=== PATIENT | male | born 1985 | race Caucasian/White ===

== ENCOUNTER 2022-07-25 13:54 | Emergency (ER) | payer BC, SELFPAY ==
[2022-07-25] VITALS (27 sets, daily range): BP systolic 129–176; BP diastolic 69–87; PULSE 72–91; RESP 12–29; TEMP 36.8; O2SAT 95–98
--- NOTE | 2022-07-25 13:45 | RT.EKG_ITS ---
APPROVED REPORT Exam: Resting ECG Reason for Exam: chest pain Patient Location: E HR:82 bpm ECG Measurements Heart Rate [address] 177 P 48 QRSd 101 QRS 24 QT 388 T 3 QTc 455 Conclusion Sinus rhythm...normal P axis, V-rate 60- 99 Physician: no stemi, inverted t wave in III.
--- NOTE | 2022-07-25 14:31 | ED.GENADUL_ITS ---
Discharge Plan Discharge Details Chief Complaint: Chest Pain Primary Care Provider: Orlando Mosquera ED Provider: Drew Whelan Home Meds and New Rx's Prescriptions: No Action amlodipine-benazepril 2.5-10 mg Capsule 1 cap PO DAILY Medical Decision Making Patient presenting to the emergency department for chief complaint of chest pain. He states this is been intermittent over the past couple weeks which caused him to go back to his primary care provider a week ago and be restarted on his blood pressure medication that he took for approximately 1 year and then just stopped taking for a while. He states that he has dull ache over his left chest that is pulsatile and worse at rest. Patient denies all other symptoms. Physical exam is unremarkable for any obvious findings, no murmur, pulses regular and equal bilateral. Patient does have risk factors that he is overweight and has hypertension denies any tobacco use but does state that he does drink more than he should. We will plan on checking EKG, cardiac labs, CTA , and D-dimer. Patient states pain is improving since he has been here so we will hold off in any medical treatment at this time. Please see physician interpretation for full interpretation of EKG but upon my review patient is in sinus rhythm with no acute findings to suggest STEMI. Reviewed labs and CBC is unremarkable nondiagnostic, CMP shows elevation of AST and ALT but total bilirubin and alk phos are normal. I suggest these elevations are secondary to patient's alcohol use, negative initial troponin. We will continue with CTA and delta troponin along with monitoring patient. Patient signed out to MONI Adrian pending CTA imaging and delta troponin along with rib assessment and disposition HPI General Mode of arrival: ambulatory . Date/Time Provider Initiated Documentation: 07/25/22 13:58 . Limitations to Documentation: no limitations . Information obtained by: patient, RN notes reviewed and old records reviewed . History of Present Illness 37 year old M presents to the emergency department with the chief complaint of Chest pain, described as moderate, with intensity rated at 6. Quality is described as aching (Pulsatile), and is localized to the chest and left. Patient reports no radiation. Patient started experiencing this week(s) and it has been intermittent. No relieving factors improve symptom(s), Rest worsens symptoms . Patient notes no other symptoms.. Patient did receive the following treatments prior to arrival, other (Started new blood pressure meds) Related Data Home Medications Medication Instructions Recorded Confirmed amlodipine 2.5 mg-benazepril 10 mg 1 cap PO DAILY 07/25/22 07/25/22 capsule Allergies Allergy/AdvReac Type Severity Reaction Status Date / Time No Known Allergies Allergy Unverified 07/25/22 14:04 General Stated Complaint: Chest Pain DESIRAE: 2 Review of Systems Constitutional Constitutional: Denies chills, Denies fever(s) and Denies malaise Cardiovascular Cardiovascular: Reports as per HPI, Reports chest pain, Reports chest pain at rest, Denies chest pain with activity, Denies syncope, Denies irregular heart rhythm, Denies palpitations and Denies dyspnea Respiratory Respiratory: Denies cough, Denies hemoptysis and Denies dyspnea Gastrointestinal Gastrointestinal: Denies abdominal pain, Denies nausea and Denies vomiting Neurologic Neurologic: Denies syncope Psychiatric Psychiatric: Denies anxiety Endocrine Endocrine: Denies cold intolerance, Denies heat intolerance and Denies palpitations PFSH All Active Problems Hypertension (Chronic) Social History Smoking/Tobacco Use Status: Never Smoking risk assessment performed?: Yes Alcohol Intake: current Alcohol Intake frequency: a few times a week Alcohol type: hard liquor Substance use type: does not use Do you feel safe at home: Yes Do you feel safe in your relationship?: Yes Exam Const General: cooperative, comfortable, no acute distress, not diaphoretic and not i ll appearing Nutritional Appearance: obese Orientation: alert, awake and oriented x3 Limitations: mental status not altered Neck Neck: normal visual inspection, full ROM, trachea midline, supple and no anterior neck swelling Thyroid: thyroid normal Carotids: normal carotid upstroke and no bruits Chest Chest: normal inspection of the chest and normal palpation of entire chest wall Resp Effort & Inspection: normal respiratory effort and able to speak in complete sentences Auscultation: clear to auscultation bilaterally Cardio Jugular venous pressure: no JVD Palpation: normal PMI Rate: regular rate Rhythm: regular rhythm Heart Sounds: S1 normal, S2 normal, no click, no gallops, no murmurs and no rubs Bruits: no abdominal aortic bruits and no carotid bruits Pulses: radial pulses present bilaterally 2+ GI Inspection: normal to inspection Palpation: soft, no aortic enlargement, no pulsatile masses and nontender Auscultation: normal bowel sounds Skin General skin exam: no rashes or lesions noted Neuro General: patient alert, patient awake, patient oriented x3, tone normal and moves all extremities Course Vital Signs Vital signs: Vital Signs Temperature 36.8 C 07/25/22 14:03 Pulse 91 H 07/25/22 14:03 Respiratory Rate 20 07/25/22 14:03 Blood Pressure 176/81 H 07/25/22 14:03 Pulse Oximetry 97 07/25/22 14:03 Temperature 36.8 C 07/25/22 14:03 Temperature Source Skin 07/25/22 14:03 Pulse 91 H 07/25/22 14:03 Respiratory Rate 20 07/25/22 14:03 Blood Pressure 176/81 H 07/25/22 14:03 Blood Pressure Position Sitting 07/25/22 14:03 Pulse Oximetry 97 07/25/22 14:03 Oxygen Delivery Method Room Air 07/25/22 14:03 Oxygen Flow Rate 0 07/25/22 14:03 Pain Level 1 07/25/22 14:03
[2022-07-25] MEDS: Normal Saline 500 ML IV (14:34)
[2022-07-25 14:35] LABS: Abs Immature Grans 0.02 10^3/uL (0.0-0.06); Absolute Basophil Count 0.06 10^3/uL (0.0-0.2); Absolute Eosinophil Count 0.09 10^3/uL (0.0-0.7); Absolute Monocyte Count 0.91 10^3/uL (0.1-0.8); Absolute Neutrophil Count 5.86 10^3/uL (1.2-6.7); Basophils % 0.6; Eosinophils % 0.9; HCT 42.8 % (40.0-50.0); HGB 14.8 g/dL (13.5-17.5); Immature Grans % 0.2; Lymphocytes % 28.7; MCH 30.5 pg (27.0-33.0); MCHC 34.6 % (32.0-36.0); MCV 88 fL (80-95); Monocytes % 9.3; Neutrophils % 60.3; Platelet Count 215 10^3/uL (130-400); RBC 4.85 10^6/uL (4.36-5.78); RDW 11.9 % (11.8-14.1); RDW-SD 38.3 fL; WBC 9.74 10^3/uL (4.4-10.8)
[2022-07-25 14:53] LABS: ALT 109 U/L (16-63); AST 72 U/L (15-37); Albumin 4.3 g/dL (3.4-5.0); Alkaline Phosphatase 110 U/L (46-116); Anion Gap 9.3 mmol/L (3-11); BUN 13 mg/dL (7-18); Bilirubin, Total 0.5 mg/dL (0.2-1.0); CO2 29.7 mmol/L (21.0-32.0); Calcium 9.6 mg/dL (8.5-10.1); Chloride 98 mmol/L (98-107); Estimated GFR 98.18 (mL/min/1.73m2); Glucose 83 mg/dL (74-106); Magnesium 1.9 mg/dL (1.8-2.4); Potassium 3.6 mmol/L (3.5-5.1); Sodium 137 mmol/L (136-145); Total Protein 8.3 g/dL (6.4-8.2); Troponin I < 50 ng/L (<or=60)
--- NOTE | 2022-07-25 15:00 | DI.CT_ITS ---
Exam(s) CT CHEST PE CTA EXAM: CT CHEST PE CTA CLINICAL HISTORY: Pulsatile chest pain. TECHNIQUE: Imaging Protocol: CT angiography of the chest was performed using pulmonary embolus laurel col. Multi planar reconstructions were performed. CONTRAST MATERIAL: Intravenous: Omnipaque 350 Contrast volume: 100 cc COMPARISON: No exams were available for comparison FINDINGS: CHEST: PULMONARY ARTERIES: There are no intraluminal filling defects to suggest acute pulmonary emboli. LUNGS: There is subpleural nodular infiltrate in the right lower lobe measuring 10 x 9 millimeters. No other focal lung findings.. There are no pleural effusions. MEDIASTINUM: There is no hilar nor mediastinal adenopathy. Visualized thyroid unremarkable. CARDIAC: Heart size is upper normal. There is no pericardial effusion.Caliber of the thoracic aorta is within normal limits. No evidence of aortic dissection. There is no significant shift of the inte rventricular septum. PARTIALLY VISUALIZED UPPERMOST ABDOMEN: Attic steatosis noted. No splenomegaly. No discrete focal h epatic lesions identified. No adrenal masses. OSSEOUS: No significant osseous lesions.. IMPRESSION: 1. No evidence of acute pulmonary emboli. No evidence of pulmonary infarction.No pleural effusions. 2. No evidence of aortic dissection. No dilatation of the thoracic aorta. No pericardial effusion. 3. There is a 1 cm nodular infiltrate in the right lower lobe. Requires appropriate follow-up. 4. Hepatic steatosis noted. Called by myself to ER physician. RADIATION DOSE DELIVERED: 795.3mGy.cm Total DLP DATA REPOSITORY: All CT scans at this facility are submitted to the National Radiology Data Registry (NRDR) Dose Index Registry (DIR) with the [employer] (A[employer]). RADIATION OPTIMIZATION: All CT scans at this facility use at least one of these dose optimization te chniques: automated exposure control; mA and/or kV adjustment per patient size (includes targeted exa ms where dose is matched to clinical indication); or iterative reconstruction.
[2022-07-25 15:23] LABS: D-Dimer 180 ng/mlFEU (<500)
[2022-07-25] MEDS: Normal Saline - Diluent 50 ML VIAL IJ (15:32)
[2022-07-25] MEDS: Omnipaque 350 MG/ML 100 ML BTL IJ (15:32)
[2022-07-25] MEDS: Normal Saline Flush 10 ML SYR IVP (15:32)
--- NOTE | 2022-07-25 16:24 | ED.PROG_ITS ---
Date of service: 07/25/22 Time of Service: 15:30 Medical Decision Making I assumed care of this 37-year-old gentleman from my colleague MATTHIAS Whelan, please see his initial HPI and examination. At time of signout awaiting a delta troponin and CTA of the chest. I evaluated the patient, he reports currently feeling asymptomatic. He was agreeable to awaiting a delta troponin and his CTA. CTA reveals incidental pulmonary nodule and hepatic steatosis, no PE or dissection. Discussed findings with patient. He understands the importance of outpatient follow-up through his PCP regarding his pulmonary nodule and hepatic steatosis. He is not a smoker. He does admit to drinking alcohol and admits he could likely cut back. We also discussed weight loss. He does not believe that he requires additional help to cut back his alcohol, declines detox, etc. Patient remains asymptomatic. Blood pressure trending down. Delta troponin remains less than 50. Standard discharge and return precautions were provided. Patient understands, is agreeable to this plan, and has no additional questions or concerns upon discharge. We discussed further outpatient work-up such as stress test, echocardiogram, endoscopy, etc. they will be indicated for further evaluation of his ongoing symptoms. This documentation was generated using [employer] dictation system, please disregard any oddities of phrase or misspellings. Imaging Data Radiologic Study: Attestation: I personally reviewed and interpreted this imaging study as follows: Imaging: CT Scan Radiologist's impression: Exam(s) CT CHEST PE CTA EXAM: CT CHEST PE CTA CLINICAL HISTORY: Pulsatile chest pain. TECHNIQUE: Imaging Protocol: CT angiography of the chest was performed using pulmonary embolus protocol. Multi planar reconstructions were performed. CONTRAST MATERIAL: Intravenous: Omnipaque 350 Contrast volume: 100 cc COMPARISON: No exams were available for comparison FINDINGS: CHEST: PULMONARY ARTERIES: There are no intraluminal filling defects to suggest acute pulmonary emboli. LUNGS: There is subpleural nodular infiltrate in the right lower lobe measuring 10 x 9 millimeters. No other focal lung findings.. There are no pleural effusions. MEDIASTINUM: There is no hilar nor mediastinal adenopathy. Visualized thyroid unremarkable. CARDIAC: Heart size is upper normal. There is no pericardial effusion.Caliber of the thoracic aorta is within normal limits. No evidence of aortic dissection. There is no significant shift of the interventricular septum. PARTIALLY VISUALIZED UPPERMOST ABDOMEN: Attic steatosis noted. No splenomegaly. No discrete focal hepatic lesions identified. No adrenal masses. OSSEOUS: No significant osseous lesions.. IMPRESSION: 1. No evidence of acute pulmonary emboli. No evidence of pulmonary infarction.No pleural effusions. 2. No evidence of aortic dissection. No dilatation of the thoracic aorta. No pericardial effusion. 3. There is a 1 cm nodular infiltrate in the right lower lobe. Requires appropriate follow-up. 4. Hepatic steatosis noted. Called by myself to ER physician. Lab Data Lab results reviewed: Yes I reviewed the patient's lab results. Labs: Laboratory Tests Range/Units 07/25/22 07/25/22 07/25/22 14:10 14:10 14:10 WBC (4.4-10.8) 10^3/uL 9.74 RBC (4.36-5.78) 10^6/uL 4.85 Hgb (13.5-17.5) g/dL 14.8 Hct (40.0-50.0) % 42.8 MCV (80-95) fL 88 MCH (27.0-33.0) pg 30.5 MCHC (32.0-36.0) % 34.6 RDW (11.8-14.1) % 11.9 Plt Count (130-400) 10^3/uL 215 MPV (8.0-11.0) fL 12.0 H Immature Gran % 0.2 Neutrophils % 60.3 Lymphocytes % 28.7 Monocytes % 9.3 Eosinophils % 0.9 Basophils % 0.6 Nucleated RBC % (0.0-0.3) % 0.0 Absolute Neutrophils (1.2-6.7) 10^3/uL 5.86 Absolute Lymphocytes (1.2-3.4) 10^3/uL 2.80 Absolute Monocytes (0.1-0.8) 10^3/uL 0.91 H Absolute Eosinophils (0.0-0.7) 10^3/uL 0.09 Absolute Basophils (0.0-0.2) 10^3/uL 0.06 D-Dimer (<500) ng/mlFEU 180 Sodium (136-145) mmol/L 137 Potassium (3.5-5.1) mmol/L 3.6 Chloride (98-107) mmol/L 98 Carbon Dioxide (21.0-32.0) mmol/L 29.7 Anion Gap (3-11) mmol/L 9.3 BUN (7-18) mg/dL 13 Creatinine (0.70-1.30) mg/dL 1.0 Est GFR (CKD-EPI 2020) (mL/min/1.73m2) 98.18 Glucose (74-106) mg/dL 83 Calcium (8.5-10.1) mg/dL 9.6 Magnesium (1.8-2.4) mg/dL 1.9 Total Bilirubin (0.2-1.0) mg/dL 0.5 AST (15-37) U/L 72 H ALT (16-63) U/L 109 H Alkaline Phosphatase (46-116) U/L 110 Troponin I (<or=60) ng/L < 50 Total Protein (6.4-8.2) g/dL 8.3 H Albumin (3.4-5.0) g/dL 4.3 Range/Units 07/25/22 17:52 WBC (4.4-10.8) 10^3/uL RBC (4.36-5.78) 10^6/uL Hgb (13.5-17.5) g/dL Hct (40.0-50.0) % MCV (80-95) fL MCH (27.0-33.0) pg MCHC (32.0-36.0) % RDW (11.8-14.1) % Plt Count (130-400) 10^3/uL MPV (8.0-11.0) fL Immature Gran % Neutrophils % Lymphocytes % Monocytes % Eosinophils % Basophils % Nucleated RBC % (0.0-0.3) % Absolute Neutrophils (1.2-6.7) 10^3/uL Absolute Lymphocytes (1.2-3.4) 10^3/uL Absolute Monocytes (0.1-0.8) 10^3/uL Absolute Eosinophils (0.0-0.7) 10^3/uL Absolute Basophils (0.0-0.2) 10^3/uL D-Dimer (<500) ng/mlFEU Sodium (136-145) mmol/L Potassium (3.5-5.1) mmol/L Chloride (98-107) mmol/L Carbon Dioxide (21.0-32.0) mmol/L Anion Gap (3-11) mmol/L BUN (7-18) mg/dL Creatinine (0.70-1.30) mg/dL Est GFR (CKD-EPI 2020) (mL/min/1.73m2) Glucose (74-106) mg/dL Calcium (8.5-10.1) mg/dL Magnesium (1.8-2.4) mg/dL Total Bilirubin (0.2-1.0) mg/dL AST (15-37) U/L ALT (16-63) U/L Alkaline Phosphatase (46-116) U/L Troponin I (<or=60) ng/L < 50 Total Protein (6.4-8.2) g/dL Albumin (3.4-5.0) g/dL Exam Const General: cooperative, healthy appearing, comfortable and no acute distress Orientation: alert and awake [facility] Head: normal to inspection, normocephalic and atraumatic Eyes Conjunctivae: conjunctivae normal Neck Neck: normal visual inspection, full ROM, no meningeal signs, trachea midline and supple Resp Effort & Inspection: normal respiratory effort and able to speak in complete sentences Auscultation: clear to auscultation bilaterally Cardio Rate: regular rate Rhythm: regular rhythm GI Inspection: obesity Skin General skin exam: no rashes or lesions noted Neuro General: patient alert, patient awake, moves all extremities and no focal motor deficits Cognition: normal cognition Speech: speech normal Gait: normal gait Sensory Exam: no sensory deficits noted Psych Appearance: grossly normal Mental Status: mental status grossly normal Sign Out Sign Out Data: Sign Out Comment: Patient pending CTA imaging, delta troponin, and reassessment along with disposition for left-sided chest pain. Last updated by Drew Whelan NP at 07/25/22 15:35 Discharge Plan Disposition Patient Disposition: Home Condition: Stable Discharge Details Clinical Impression: Chest pain, Pulmonary nodule, Hepatic steatosis Primary Care Provider: Orlando Mosquera ED Provider: Trung Mark Home Meds and New Rx's Prescriptions: Continued amlodipine-benazepril 2.5-10 mg Capsule 1 cap PO DAILY Discharge Instructions Instructions: Chest Pain (ED) Additional Instructions: At this time your rapid cardiac rule out including a CTA of your chest does not reveal any obvious emergent process. As we discussed incidentally you had fatty liver as well as a pulmonary nodule which both need to be followed by your PCP. We discussed weight loss and decreasing your overall alcohol intake. Please watch for new or worsening symptoms and return to the ER for any concerns. Lastly, I would like you to contact your primary care provider tomorrow to discuss your ER visit, ongoing symptoms, and need for outpatient reevaluation.
[2022-07-25 18:17] LABS: Troponin I < 50 ng/L (<or=60)
== END 2022-07-25 18:32 | disposition home or self-care (01) ==
PROVIDERS: Nurse Practitioner Family; Emergency Provider Physician Assistant; PCP Nurse Practitioner Family
DX: R07.9 Chest pain, unspecified (principal); I10 Essential (primary) hypertension; R74.01 Elevation of levels of liver transaminase levels; E66.9 Obesity, unspecified
CPT/HCPCS: 36415; 71275; 80053; 93005; 96360; 99285; 83735; 84484; 85025; 85379; 93010; 99284; J3490